=== PATIENT | male | born 1995 | race Caucasian/White ===

== ENCOUNTER 2018-05-12 18:30 | Emergency (ER) | payer SELFPAY ==
[2018-05-12] MEDS ORDERED: IBUPROFEN 400 MG TAB ONE (19:17)
[2018-05-12] MEDS ORDERED: IBUPROFEN 200 MG TAB PO ONE (19:17)
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
== END 2018-05-12 20:36 | disposition home or self-care (01) ==
LOC: ER 18:30
DX: S80.212A Abrasion, left knee, initial encounter (principal); S80.211A Abrasion, right knee, initial encounter; V29.9XXA Motorcycle rider (driver) (passenger) injured in unspecified traffic accident, initial encounter; Z88.8 Allergy status to other drugs, medicaments and biological substances
CPT/HCPCS: 70450; 72125; 99285

== ENCOUNTER 2024-05-31 15:31 | Emergency (ER) | payer OTHER ==
--- OUTSIDE RECORDS SUMMARY | 2024-05-31 15:35 | XMS REPORT | Continuity of Care Document ---
Author Name Unknown Address [address] [facility] [place] [address] [facility] thconnect Address [address] [facility] [address] [place] [address] Care Team Providers Care Orchard Pruner Name Role Phone Amy Chowdhury [facility] Primary Care Physician Chandrika Bishop FASHION SUPERVISOR-LINING BRUSHER Attending Clinician U Domenico Fang Attending Clinician Unavailable EDDOC, GENERIC FOR EDM Attending Clinician Unava Todd Carson Attending Clinician Unavailab le Nickell_K Attending Clinician Unavailable MARIO SOLORIO Attending Clinician Unavailable Chandrika Bishop FASHION SUPERVISOR-LINING BRUSHER Admitting Clinician U araseli Physician, No Primary or Family Admitting Clinic dina Unavailable UNDEFINED Admitting Clinician Unavailable Nickell_K Admitting Clinician Unavailable Payers Payer Name Policy Type Policy Number Effective Date Expirati on Date Source RADHA-[place] (EPO) [id number] Problems Condition Name Condition Details Condition Category Status Onset Date Resolution Date Last Treatment Date Treating Clinician Comments Source 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 2023-06 1-19 00:00: 00 [facility] Infection of skin Infection of Skin Problem Active 625 00:00: 00 [facility] Hematoma of scrotum Hematoma of Scrotum Problem Active 6-04 00:00: 00 [facility] Testicular mass Testicular Mass Problem Active 4-16 00:00: 00 [facility] Laceration of liver [facility]eration [facility] Liver [facility] Laceration of spleen Laceration of Spleen Problem Active [facility] Laceration of chin Laceration of Chin Problem Active [facility] Bite of insect Bite of Insect Problem Active [facility] Problem Condition [facility] Allergies, Adverse Reactions, Alerts Allergy Name Allergy Type Status Severity Reaction(s) Onset Date Inactive Date Treating Clinician Comments Source No Known Allergie s DA Active U 11-07 00:00: 00 [facility] cefaclor DA Active MO RASH 10-09 00:00: 00 [facility] Cefaclor Allergy to substanc e Active 10-09 00:00: 00 [facility] Ceclor Propensi ty to adverse reaction to drug Active 2017-06 00:00: 00 Lalo Loredo D[facility] Codeine Allergy to substanc e Active 2017-06 00:00: 00 [facility] Cefaclor Allergy to substanc e Active Unknown 2-14 00:00: 00 [facility] cefaclor DA Active [facility] CECLOR Allergy to substanc e Active [facility] Social History Social Habit Start Date Stop Date Quantity Comments Source Sex Assigned At 1995 00:00:00 1995 00:00:00 Male [facility] Smoking Status Start Date Stop Date Source Never Smoker [facility] Ex-smoker (finding) 2020-05-12 22:20:00 2020-05-12 22: 20:00 [facility] Medications Ordered Medication Name Filled Medication Name Start Date Stop Date Current Medication? Ordering Clinician Indication Dosage Frequency Signature (SIG) Comments Components Source TAKE 1 TABLET DAILY UNTIL FINISHED. 07-22 00:00: 00 10-11 00:00 :00 No 500 Lalo Mijares Pantoprazol e (Protonix) 20 Mg TABEC 2019-06 01:02: 00 No 20mg Daily [facility] pantoprazol e 20 mg tablet,hieu yed release 20 mg by oral route. pantoprazol e 20 mg tablet,hieu yed release 20 mg by oral route. 2019-06 00:00: 00 No 20mg pantoprazo le 20 mg tablet,del ayed release 20 mg by oral route. [facility] Prednisone (Deltasone) 20 Mg TAB 11-26 02:25: 00 No 60mg Daily [facility] Trimethopri m/Sulfameth oxazole (Bactrim Ds, Septra Ds, Sulfatrim Ds) 1 Each TAB 11-26 02:25: 00 No 1 Every 12 Hours [facility] Prednisone (Deltasone) 20 Mg TAB 11-26 02:25: 00 No 60mg Daily [facility] Trimethopri m/Sulfameth oxazole (Bactrim Ds, Septra Ds, Sulfatrim Ds) 1 Each TAB 11-26 02:25: 00 12-07 00:00 :00 No 1 Every 12 Hours [facility] sulfamethox azole 800 mg-trimetho prim 160 mg tablet Take 1 tablet every 12 hours by oral route for 7 days. sulfamethox azole 800 mg-trimetho prim 160 mg tablet Take 1 tablet every 12 hours by oral route for 7 days. 11-26 00:00: 00 No 1 Q12H sulfametho xazole 800 mg-trimeth oprim 160 mg tablet Take 1 tablet every 12 hours by oral route for 7 days. [facility] prednisone 20 mg tablet 60 mg by oral route. prednisone 20 mg tablet 60 mg by oral route. 11-26 00:00: 00 No 60mg prednisone 20 mg tablet 60 mg by oral route. [facility] Tramadol Hcl (Ultram) 50 Mg TAB 08-08 16:40: 00 No 50mg Every 4 Hours as needed for Pain [facility] Tramadol Hcl (Ultram) 50 Mg TAB 08-08 16:40: 00 No 50mg Every 4 Hours as needed for Pain [facility] tramadol 50 mg tablet 50 mg by oral route. tramadol 50 mg tablet 50 mg by oral route. 08-08 00:00: 00 No 50mg tramadol 50 mg tablet 50 mg by oral route. [facility] bacitracin 500 unit/gram topical ointment Apply 1 application twice a day by topical route for 14 days. bacitracin 500 unit/gram topical ointment Apply 1 application twice a day by topical route for 14 days. No 1applic ation(s ) BID bacitracin 500 unit/gram topical ointment Apply 1 applicatio n twice a day by topical route for 14 days. [facility] Vital Signs Vital Name Observation Time Observation Value Comments S ource Body Weight 2024-05-11 00:00:00 277 [lb_av] [facility] Systolic 2024-05-11 00:00:00 154 [facility]Hg[facility] Diastolic 2024-05-11 00:00:00 80 mm[Hg] [facility] BMI (Body Mass Index) 2024-05-11 00:00:00 40.9 kg/m2 [facility] Height 2024-05-11 00:00:00 69 [in_i] [facility] BP Systolic 2024-02-24 00:00:00 157 mm[Hg] [facility] BP Diastolic 2024-02-24 00:00:00 95 mm[Hg] [facility] Weight 2024-02-24 00:00:00 264 [lb_av] [facility] BMI (Body Mass Index) 2024-02-24 00:00:00 39 kg/m2 [facility] Height 2024-02-24 00:00:00 69 [in_i] [facility] Height 2023-12-16 00:00:00 69 [in_i] [facility] BP Systolic 2023-12-16 00:00:00 136 mm[Hg] [facility] Body Weight 2023-12-16 00:00:00 264 [lb_av] [facility] BP Diastolic 2023-12-16 00:00:00 86 mm[Hg] [facility] BMI (Body Mass Index) 2023-12-16 00:00:00 39 kg/m2 [facility] BMI (Body Mass Index) 2023-11-25 00:00:00 39 kg/m2 [facility] Height 2023-11-25 00:00:00 69 [in_i] [facility] Body Weight 2023-11-25 00:00:00 264 [lb_av] [facility] BP Diastolic 2023-11-25 00:00:00 86 mm[Hg] [facility] BP Systolic 2023-11-25 00:00:00 136 mm[Hg] [facility] Height 2023-11-11 00:00:00 69 [in_i] [facility] Body Weight 2023-11-11 00:00:00 264 [lb_av] [facility] BMI (Body Mass Index) 2023-11-11 00:00:00 39 kg/m2 [facility] BP Systolic 2023-11-11 00:00:00 149 mm[Hg] [facility] BP Diastolic 2023-11-11 00:00:00 85 mm[Hg] [facility] Body Weight 2023-10-21 00:00:00 264 [lb_av] [facility] BP Diastolic 2023-10-21 00:00:00 91 mm[Hg] [facility] Height 2023-10-21 00:00:00 69 [in_i] [facility] BMI (Body Mass Index) 2023-10-21 00:00:00 39 kg/m2 [facility] BP Systolic 2023-10-21 00:00:00 139 mm[Hg] [facility] BMI (Body Mass Index) 2023-10-07 00:00:00 39 kg/m2 [facility] BP Systolic 2023-10-07 00:00:00 139 mm[Hg] [facility] Height 2023-10-07 00:00:00 69 [in_i] [facility] BP Diastolic 2023-10-07 00:00:00 91 mm[Hg] [facility] Body Weight 2023-10-07 00:00:00 264 [lb_av] [facility] BP Systolic 2023-09-30 14:25:00 137 mm[Hg] Step hen F [facility] BP Diastolic 2023-09-30 14:25:00 83 mm[Hg] Joaquin phen F [facility] Weight Measured 2023-09-30 14:25:00 263.60 pounds Lalo F D[facility] Height Measured 2023-09-30 14:25:00 67.48 inches Lalo F [facility] Body Temperature 2023-09-30 14:25:00 98.30 degrees Lalo F Dyllan Heart Rate 2023-09-30 14:25:00 95.00 /min Jillian en F D[facility] Respiratory Rate 2023-09-30 14:25:00 Lalo F Dyllan BP Systolic 2023-09-03 09:33:00 140 mm[Hg] Step hen F [facility] BP Diastolic 2023-09-03 09:33:00 81 mm[Hg] Joaquin phen F [facility] Weight Measured 2023-09-03 09:33:00 268.40 pounds Lalo F Dyllan Height Measured 2023-09-03 09:33:00 67.48 inches Lalo F Dyllan Body Temperature 2023-09-03 09:33:00 98.20 degrees Lalo F Dyllan Heart Rate 2023-09-03 09:33:00 78.00 /min Jillian en F [facility]yll[facility] Respiratory Rate 2023-09-03 09:33:00 Lalo F Dyllan BP Systolic 2023-08-28 16:26:00 148 mm[Hg] Step hen F Dyll[facility] BP Diastolic 2023-08-28 16:26:00 83 mm[Hg] Joaquin phen F [facility] Weight Measured 2023-08-28 16:26:00 275.60 pounds Lalo F Dyllan Height Measured 2023-08-28 16:26:00 67.48 inches Lalo F Dyllan Body Temperature 2023-08-28 16:26:00 98.30 degrees Lalo F Dyllan Heart Rate 2023-08-28 16:26:00 89.00 /min Jillian en F Dyllan Respiratory Rate 2023-08-28 16:26:00 18.00 /min Lalo F Dyllan BP Systolic 2023-08-12 14:11:00 138 mm[Hg] Step hen F Dyllan BP Diastolic 2023-08-12 14:11:00 59 mm[Hg] Joaquin phen F Dyllan Weight Measured 2023-08-12 14:11:00 266.60 pounds Lalo F Dyllan Height Measured 2023-08-12 14:11:00 67.48 inches Lalo F Dyllan Body Temperature 2023-08-12 14:11:00 98.00 degrees Lalo F Dyllan Heart Rate 2023-08-12 14:11:00 86.00 /min Jillian en F Dyllan Respiratory Rate 2023-08-12 14:11:00 18.00 /min Lalo F Dyllan BP Systolic 2023-07-22 15:24:00 134 mm[Hg] Step hen F Dyllan BP Diastolic 2023-07-22 15:24:00 84 mm[Hg] Joaquin phen F Dyll[facility] Weight Measured 2023-07-22 15:24:00 271.60 pounds Lalo F Dyllan Height Measured 2023-07-22 15:24:00 67.48 inches Lalo F Dyllan Body Temperature 2023-07-22 15:24:00 98.30 degrees Lalo F Dyllan Heart Rate 2023-07-22 15:24:00 86.00 /min Jillian en F Dyllan Respiratory Rate 2023-07-22 15:24:00 18.00 /min Lalo F Dyllan BP Diastolic 2020-05-13 01:31:00 72 mm[Hg] [facility] BP Systolic 2020-05-13 01:31:00 128 mm[Hg] [facility] Heart Rate 2020-05-13 01:31:00 75 /min [facility] Respiratory rate 2020-05-13 01:31:00 21 /min [facility] Body Temperature 2020-05-13 01:31:00 97.5 [degF] [facility] BP Diastolic 2020-05-13 01:30:00 72 mm[Hg] [facility] BP Systolic 2020-05-13 01:30:00 128 mm[Hg] [facility] Heart Rate 2020-05-13 01:30:00 75 /min [facility] Respiratory rate 2020-05-13 01:30:00 21 /min [facility] Heart Rate 2020-05-13 01:12:00 87 /min [facility] BP Diastolic 2020-05-12 22:20:00 72 mm[Hg] [facility] BP Systolic 2020-05-12 22:20:00 137 mm[Hg] [facility] Heart Rate 2020-05-12 22:20:00 82 /min [facility] Respiratory rate 2020-05-12 22:20:00 19 /min [facility] Body Temperature 2020-05-12 22:20:00 97.5 [degF] [facility] Heart Rate 2020-05-12 22:18:00 87 /min [facility] Respiratory rate 2020-05-12 22:14:00 19 /min [facility] Body Temperature 2020-05-12 22:14:00 97.5 [degF] [facility] BP Diastolic 2020-05-12 22:14:00 72 mm[Hg] [facility] BP Systolic 2020-05-12 22:14:00 137 mm[Hg] [facility] Heart Rate 2020-05-12 22:14:00 82 /min [facility] Heart Rate 2019-11-27 02:37:00 76 /min [facility] Respiratory rate 2019-11-27 02:37:00 20 /min [facility] BP Systolic 2019-11-27 02:37:00 118 mm[Hg] [facility] BP Diastolic 2019-11-27 02:37:00 72 mm[Hg] [facility] Heart Rate 2019-11-26 23:58:00 72 /min [facility] Respiratory rate 2019-11-26 23:58:00 20 /min [facility] BP Systolic 2019-11-26 23:58:00 115 mm[Hg] [facility] BP Diastolic 2019-11-26 23:58:00 69 mm[Hg] [facility] Weight 2019-11-26 23:53:00 160 [lb_av] [facility] BMI (Body Mass Index) 2019-11-26 23:53:00 23.0 [facility]/m2 [facility]stolic 2018-05-22 14:28:00 120 mm[Hg] Step hen F Dyllan BP Diastolic 2018-05-22 14:28:00 77 mm[Hg] Joaquin Mijares Weight Measured 2018-05-22 14:28:00 242.60 pounds Lalo Mijares Height Measured 2018-05-22 14:28:00 67.48 inches Lalo Mijares Body Temperature 2018-05-22 14:28:00 98.40 degrees Lalo Mijares Heart Rate 2018-05-22 14:28:00 106.00 /min Luther Mijares Respiratory Rate 2018-05-22 14:28:00 16.00 /min Lalo Mijares Procedures Procedure Date / Time Performed Performing Clinicia n Source Orchiectomy, Radical (Surg) 2023-10-15 00:00:00 [facility] PET-CT, whole body scan 2023-10-07 00:00:00 [facility] [id number] Ultrasound, Scrotum And Contents 2023-08-07 00:00:00 Lalo Mijares Orchiectomy Partial 2023-06-23 00:00:00 juan [facility] ECG (electrocardiogram) 2020-05-12 00:00:00 [facility] X-ray of chest, two views 2020-05-12 00:00:00 [facility]- [facility] [place] [facility] Encounters Start Date/Time End Date/Time Encounter Type Admission Type Attending Clinicians Care Facility Care Department Encounter ID Source 2023-10-19 11:00:00 Inpatient [facility] [id number] [facility] 2023-10-16 11:00:00 Inpatient [facility] [id number] [facility] 2024-05-11 00:00:00 2024-05-11 00:00:00 Todd Vieira MD: [address], [place] [address] , Ph. [facility] [place] - 5050 [id number] [facility] 2024-03-26 08:46:00 2024-03-26 08:46:00 Outpatient Chandrika Walton [facility] N[facility]CM [id number] [facility] 2024-02-24 00:00:00 2024-02-24 00:00:00 Chandrika Bishop, ENGINEER SYSTEMS: [address], [place] [address] , Ph. [facility] [place] - 5050 [id number] [facility] 2023-12-16 00:00:00 2023-12-16 00:00:00 Chandrika Bishop, ENGINEER SYSTEMS: [address], [place] [address] , Ph. [facility] - 5150 [id number] [facility] 2023-11-25 00:00:00 2023-11-25 00:00:00 Chandrika Bishop, ENGINEER SYSTEMS: [address], [place] [address] , Ph. [facility] - 5150 [id number] [facility] 2023-11-11 00:00:00 2023-11-11 00:00:00 Chandrika Bishop, ENGINEER SYSTEMS: [address], [place] [address] , [facility]. [facility] 5150 [id number] [facility] 2023-11-08 12:57:00 2023-11-08 16:17:00 Emergency EM [facility]odDomenico [facility]e [facility] [id number] [facility] 2023-11-08 12:17:00 2023-11-08 12:20:00 Emergency EM EDDODieter, KEELEY HCACL AERS [id number] [facility] 2023-10-31 09:01:00 2023-10-31 09:01:00 Outpatient Chandrika Walton [facility] [id number] [facility] 2023-10-31 09:01:00 2023-10-31 09:01:00 Outpatient Chandrika Walton [facility] [id number] [facility] 2023-10-21 00:00:00 2023-10-21 00:00:00 Todd Vieira MD: [address] [place] [address] , Ph. [facility] 5150 [id number] [facility] 2023-10-15 05:16:00 2023-10-15 05:16:[address] [facility] DAYS [id number] [facility] 2023-10-15 05:16:00 2023-10-15 05:16:[address] [facility] DAYS [id number] [facility] 2023-10-07 00:00:00 2023-10-07 00:00:00 Chandrika Bishop NP: [address] [place] [address] , Ph. [facility] 5150 [id number] [facility] 2023-09-30 14:20:56 2023-09-30 14:20:56 Outpatient [facility] [id number] Lalo Loredo [facility] 2023-09-30 00:00:00 2023-09-30 00:00:00 Outpatient Visit [facility] [id number] Lalo Loredo Dyllan 2023-09-09 00:00:00 2023-09-09 00:00:00 Outpatient Nickell_K [facility] [id number] [facility] 2023-09-08 00:00:00 2023-09-08 00:00:00 Outpatient Nickell_K [facility] [id number] [facility] 2023-08-30 09:12:23 2023-08-30 09:12:23 Outpatient [facility] [id number] Lalo Mijares 2023-08-29 08:34:31 2023-08-29 08:34:31 Outpatient [facility] [place] [id number] Lalo Mijares 2023-08-28 16:22:25 2023-08-28 16:22:25 Outpatient [facility] [id number] Lalo Mijares 2023-08-12 14:06:05 2023-08-12 14:06:05 Outpatient [place] [id number] Lalo Loredo Dyllan 2023-08-12 00:00:00 2023-08-12 00:00:00 Outpatient Visit [facility] [id number] Lalo Loredo [place] 2023-08-07 13:37:06 2023-08-07 13:37:06 Outpatient [facility] [id number] Lalo Loredo [place] 2023-07-25 15:56:37 2023-07-25 15:56:37 Outpatient [facility] [id number] Lalo Loredo [place] 2023-07-22 15:14:49 2023-07-22 15:14:49 Outpatient [facility] [id number] Lalo Loredo [place] 2020-05-12 22:11:00 2020-05-13 01:31:00 Departed Emergency Room MALU TORIBIO [id number] [facility] 2019-11-26 23:31:00 2019-11-26 23:31:00 Registered Emergency Room MARIO SOLORIO [id number] [facility] Results Test Description Test Time Test Comments Results Result Co mments Source PROTHROMBIN [id number] 13:51:00* Test Item Value Reference Range Interpretation Comme nts PROTHROMBIN TIME PATIENT (test code = PTP) 11.9 SECONDS 9.3-12.9 N INTERNATIONAL NORMAL RATIO (test code = INR) 1.1 0.8-1.2 N TARGET INR BY INDICATION Indication INR1. Prophylaxis of venous thrombosis 2.0 - 3.0 (orthopedic surgery), Prophylaxis of venous thrombosis (other than high-risk surgery), Treatment of Deep Vein Thrombosis/Pulmonary Embolism, Prevention of systemic embolism - Tissue heart valves, Acute Myocardial Infarction (to prevent systemic embolism), Valvular heart disease, Atrial Fibrillation, Bileaflet mechanical valve in aortic position.2. Mechanical prosthetic valves (high risk), 2.5 - 3.5 Presence of Lupus Anticoagulant or Antiphospholipid Antibodies, Prevention of systemic embolism - Acute Myocardial Infarction (to prevent recurrent infarct). THROMBOPLASTIN TIME [id number] 13:51:00* Test Item Value Reference Range Interpretation Comme nts THROMBOPLASTIN TIME PARTIAL (test code = PTT) 35.0 Seconds 25.0-39.5 N Therapeutic Rang e: 50.4 - 88.3 Seconds Effective 10/06/2018 CBC W/AUTO [id number] 13:42:00* Test Item Value Reference Range Interpretation Comme nts WHITE BLOOD CELL (test code = WBC) 8.7 x10 3/uL 4.5-11.0 N RED BLOOD CELL (test code = RBC) 4.93 x10 6/uL 4.00-5.60 N HEMOGLOBIN (test code = HGB) 14.2 g/dL 12.5-16.9 N HEMATOCRIT (test code = HCT) 42.7 % 37.5-50.7 N MEAN CELL VOLUME (test code = MCV) 86.6 fL 81.0-99.0 N MEAN CELL HGB (test code = MCH) 28.8 pg 27.0-33.0 N MEAN CELL HGB CONCETRATION (test code = MCHC) 33.3 g/dL 33.0-37.0 N RED CELL DISTRIBUTION WIDTH CV (test code = RDW) 13.8 % 11.5-14.5 N RED CELL DISTRIBUTION WIDTH SD (test code = RDW-SD) 43.8 fL 37.0-54.0 N PLATELET COUNT (test code = PLT) 319 x10 3/uL 150-400 N MEAN PLATELET VOLUME (test c ode = MPV) 9.8 fL 7.0-9.0 H NEUTROPHIL % (test code = NT%) 68.4 % 56.0-77.0 N IMMATURE GRANULOCYTE % (test code = IG%) 0.5 % 0.0-2.0 N LYMPHOCYTE % (test code = LY%) 20.5 % 14.0-32.0 N MONOCYTE % (test code = MO%) 6.9 % 4.8-9.0 N EOSINOPHIL % (test code = EO%) 2.8 % 0.3-3.7 N BASOPHIL % (test code = BA%) 0.9 % 0.0-2.0 N NUCLEATED RBC % (test code = NRBC%) 0.0 % 0-0 N NEUTROPHIL # (test code = NT#) 5.95 x10 3/uL 2.0-7.6 N IMMATURE GRANULOCYTE # (test code = IG#) 0.04 x10 3/uL 0.00-0.03 H LYMPHOCYTE # (test code = LY#) 1.78 x10 3/uL 1.0-3.8 N MONOCYTE # (test code = MO#) 0.60 x10 3/uL 0.1-0.8 N EOSINOPHIL # (test code = EO#) 0.24 x10 3/uL 0.0-0.2 H BASOPHIL # (test code = BA#) 0.08 x10 3/uL 0.0-0.2 N NUCLEATED RBC # (test code = NRBC#) 0.00 x10 3/uL 0.0-0.1 N - PET/CT TUMOR SK [id number] 07:00:00 [facility] 1995 Sex: M FAX: Chandrika Bishop [phone] [place]: [address]: DEP Name: ANTONIETA VALENZUELA [facility] : 1995 Age/S: 27/M [address] Unit #: [id number] Loc: [place] [address] Phys: Chandrika Bishop FASHION SUPERVISOR-LINING BRUSHER Acct: [id number] Dis Date: Status: DEP CLI PHONE #: [phone] Exam Date: 10/31/2023 1241 FAX #: [phone] Reason: N50.89 EXAMS: CPT CODE: [id number] PET/CT TUMOR SK BS MIDTH [id number] HISTORY: N50.89. COMPARISON: None available. [facility] PET/CT SCAN: 9.8 mCi of FDG administered. Images obtained from the skull base to the feet 1 hour postinjection. Blood glucose level =95 mg/dL. HEAD AND NECK: Intense uptake within the brain parenchyma limits evaluation. Physiologic pharyngeal uptake. CHEST: No pathologic hilar, mediastinal or axillary adenopathy or uptake. No lungparenchymal uptake. 2.7 mm nodule within the lateral right middle lobe. This is too small to characterize and no abnormal uptake noted. No chest wall uptake. ABDOMEN: No hepatic or adrenal metastaticdisease. No abnormal uptake within the pancreas, spleen and kidneys. Gallstone noted. 2 cm retroperi toneal eft para-aortic lymph node. This is at the level of the renal hilum. SUV ranging up to 1. Smaller shotty left retroperitoneal lymph nodes without abnormal uptake with SUV ranging between 1-1.5. No other pathologic mesenteric or retrocrural or retroperitoneal adenopathy or uptake. No abnormaluptake within the bowel. PELVIS: Excretion into the urinary bladder limited evaluation. No abnormalexcretion into the bowel. No abnormal uptake within the prostate. Patient is post left orchiectomy.No abnormal uptake within the right testicle. No pelvic pathologic adenopathy. MUSCULOSKELETAL: No abnormal uptake or metastatic disease. LEGS: No abnormal uptake. IMPRESSION: 2 cm left retroperitoneal lymph node at the level of the renal hilum without abnormal uptake with SUV ranging up to 1. Shotty adenopathy as well in the left retroperitoneum without abnormal uptake with SUV ranging up to 1.5. No other areas of abnormal uptake or metastatic disease. PAGE 1 Signed Report (CONTINUED) FAX: Chandrika Bishop [phone] [place]: [address]: DEP Name: ANTONIETA VALENZUELA [facility] : 1995 Age/S: 27/M [address] [facility] Unit #: [id number] Loc: [place] [address] Phys: Chandrika Bishop Acct: [id number] Dis Date: Status: MARU CLI PHONE #: [phone] Exam Date: 10/31/2023 1241 FAX #: [phone] Reason: N50.89 EXAMS: CPT CODE: [id number] PET/CT TUMOR [facility] MIDTH [id number] (Continued) at 0700 Reported and signed by: Phillip Jordan M.D. CC: Chandrika Bishop Technologist: MIGDALIA Lee Trnscrd Date/Time/By: 11/03/2023 (07) : By: [email or web address] Orig Print D/T: S: 11/03/2023 (0704) PAGE 2 Signed Report- PET[facility]CT [id number] 07:00:00 [facility] ([facility])Name: ANTONIETA VALENZUELA : 1995 Sex: M FAX: Chandrika Bishop Mio [phone] [place]: St: DEP Name: ANTONIETA VALENZUELA JR [facility] : 1995 Age/S: 27/M [address] [facility] Unit #: [id number] Loc: [place] [address] Phys: Chandrika Bishop FASHION SUPERVISOR-LINING BRUSHER Acct: [id number] Dis Date: Status: DEP CLI PHONE #: [phone] Exam Date: 1241 FAX #: [phone] Reason: N50.89 EXAMS: CPT CODE: [id number] PET/CT TUMOR SK MIDTH 96472 HISTORY: N50.89. COMPARISON: None available. [facility] PET/CT SCAN: 9.8 mCi of FDG administered. Images obtained from the skull base to the feet 1 hour postinjection. Blood glucose level = 95 mg/dL. HEAD AND NECK: Intense uptake within the brain parenchyma limits evaluation. Physiologic pharyngeal uptake. CHEST: No pathologic hilar, mediastinal or axillary adenopathy or uptake. No lung parenchymal uptake. 2.7 mm nodule within the lateral right middle lobe. This is too small to characterize and no abnormal uptake noted. No chest wall uptake. ABDOMEN: No hepatic or adrenal metastatic disease. No abnormal uptake within the pancreas, spleen and kidneys. Gallstone noted. 2 cm retroperitoneal eft para-aortic lymph node. This is at the level of the renal hilum. SUV ranging up to 1. Smaller shotty left retroperitoneal lymph nodes without abnormal uptake with SUV ranging between 1- 1.5. No other pathologic mesenteric or retrocrural or retroperitoneal adenopathy or uptake. No abnormal uptake within the bowel. PELVIS: Excretion into the urinary bladder limited evaluation. No abnormal excretion into the bowel. No abnormal uptake within the prostate. Patient is post left orchiectomy. No abnormal uptake within the right testicle. No pelvic pathologic adenopathy. MUSCULOSKELETAL:No abnormal uptake or metastatic disease. LEGS: No abnormal uptake. IMPRESSION: 2 cm left retroperitoneal lymph node at the level of the renal hilum without abnormal uptake with SUV ranging up to 1. Shotty adenopathy as well in the left retroperitoneum without abnormal uptake with SUV ranging up to1.5. No other areas of abnormal uptake or metastatic disease. PAGE 1 Signed Report (CONTINUED) FAX:Chandrika Bishop [phone] [place]: St: DEP Name: ANTONIETA VALENZUELA JR [facility] : 1995 Age/S: 27/M [address] [facility] Unit #: [id number] Loc: [place] [address] Phys: Chandrika Bishop APRN-CNPAcct: [id number] Dis Date: Status: DEP CLI PHONE #: [phone] Exam Date: 10/31/2023 1241 FAX #: [phone] Reason: N50.89 EXAMS: CPT CODE: [id number] PET/CT TUMOR SK MIDTH 61651 (Continued) at 0700 Reported and signed by: Phillip Jordan M.D. CC: Chandrika Bishop APRN-LINING BRUSHER Technologist: MIGDALIA Lee Trnscrd Date/Time/By: 11/03/2023 (07) : By: [email or web address] Orig Print D/T: S: 11/03/2023 (0704) PAGE 2 Signed ReportSURGICAL 2023-10-24 11:28:00* Test Item Value Reference Range Interpretation Comme nts SURGICAL (test code = SR) R UN DATE: 10/24/23 [facility] PAGE 1 RUN TIME: 1128 Specimen Inquiry RUN USER: INTERFACE P ATIENT: ANTONIETA VALENZUELA JR LOC: [facility] U #: [id number] AGE/SX: 27/M ROOM: RE10/15/23REG DR: Todd Vieira MD : [birth year] BED: DIS: STATUS: [facility] TLOC: SPEC #: [id number] RECD: 10/15/23 STATUS: CHEL AMAYA #: [id number] ANATOLY: 10/15/23- SUBM DR: Todd Vieira MD ENTERED: 10/15/23 SP TYPE: SURGICAL OTHR DR: Undefined Provider ORDERED: 52108, 00685/7, 56440, ANATOMIC SPEC COPIES TO: Undefined Provider Todd Vieira MD [address] [place] [address] PROCEDURES: 33041 (10/24/23-1055) 15508 (10/24/23) 40774 (10/24/23) TISSUES: TESTICLE, LEFT - AND CORD CLINICAL COMMUNICATIONS Dr. Schmitz discussed the case with Dr. Vieira on 10/24/23 at 1126. CAP CANCER SUMMARY CASE SUMMARY: (TESTIS: Radical Orchiectomy)Standard(s): AJCC-UICC 8 Version: 4.2.0.0Protocol Posting Date: February 2023 Pre-Orchiectomy Serum Tumor Marker(s) (Note A) (select all that apply)___ Lactate dehydrogenase (LDH) elevation Post-Orchiectomy Serum Tumor Marker(s) (Note A) (select all that apply)___ Unknown: SPECIMENSpecimen Laterality___ Left TUMORTumor Focality___ Multifocal Tumor Size___ Greatest dimension of main tumor mass in Centimeters (cm): 1.2 cm CONTINUED ON NEXT PAGE R UN DATE: 10/24/23 [facility] PAGE 2 RUN TIME: 1128 Specimen Inquiry RUN USER: INTERFACE S PEC #: [id number] PATIENT: ANTONIETA VALENZUELA JR #[id number] (Continued) CAP CANCER SUMMARY (Continued) Histologic TypeNon-seminomatous germ cell tumors___ Embryonal carcinoma Tumor Extent (Note E) (select all that apply)___ Limited to testis Lymphatic and / or Vascular Invasion (Note F)___ Not identified MARGINSMargin Status___ All margins negative for tumor REGIONAL LYMPH NODESRegional Lymph Node Status___ Not applicable (no regional lymph nodes submitted or found) DISTANT METASTASISDistant Site(s) Involved, if applicable (select all that apply)___ Not applicable pTNM CLASSIFICATION (AJCC 8th Edition)---p T1, pN Category ___ pN not assigned (no nodes submitted or found) pM Category (required only if confirmed pathologically) ___ Not applicable ADDITIONAL FINDINGS (Note H)+Additional Findings (select all that apply)___ None identified FINAL DIAGNOSIS LEFT TESTICLE, RADICAL ORCHIECTOMY: - Embryonal carcinoma, see comment and CAP cancer summary. - Benign surgical resection margins. 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 IHC with appropriate controls performedon Block A9. The malignant cells are positive for OCT3/4, CD30 and PLAP; but negative forD2-40, CD117, AFP, GLYP3 and B-HCG. Results support the above diagnosis. No Yolk sackcomponent identified. No angiolymphatic invasion noted. A large Hydrocele also identified. A second staff pathologist has reviewed the case and concurs with the diagnosticinterpretation. CONTINUED ON NEXT PAGE R UN DATE: 10/24/23 [place] [facility] PAGE 3 RUN TIME: 1128 Specimen Inquiry RUN USER: INTERFACE S [facility] #: [id number] PATIENT: ANTONIETA VALENZUELA JR #[id number] (Continued) GROSS DESCRIPTION Specimen A is received in formalin, labeled with the patient's name, medical recordnumber,"left testicle" and consists of a purple-pink testis (10.0 x 5.0 x 5.0 cm, 166g).The spermatic cord measures 8.0 cm in length by 1.8 cm in diameter. The specimen is sectioned to reveal a unilocular cyst cavity filled with clear yellow serous fluid. Theinner lining of the cyst is hua-pink smooth and has a thickness measuring 0.1-0.5. Thetestis is sectioned to reveal hua-pink cut surfaces with focal areas of hua-yellow totan-brown discolaration at the periphery. Pantograph Setter sections to include the entiretestis are submitted in A1-A18. A lymph node disection performed. No lymph node identified. Section code:A1: Spermatic cord resection margin, en faceA2-A3: Cyst, representativeA4-A18 Testis, nutrition representative Technical component excluding immunohistochemistry is performed at [facility], [address] [place] [address] Technical component of all immunohistochemistry is performed at [facility], [address] [place] [address], [address], [place] [address] Immunohistochemistry: This test was developed and its performance characteristicsdetermined by this laboratory. It has not been approved nor does it need approval by the USFDA. Appropriate positive and negative controls are reviewed and judged to be acceptable.This laboratory is certified under the Clinical Laboratory Improvement Amendments (CLIA-88)as qualified to perform high complexity clinical laboratory testing. Unless gross only, the diagnosis is based upon microscopic examination. CLINICAL INFORMATION COLLECTION DATE: 4PRE-OP DIAGNOSIS: DISORDERS OF MALE GENITAL ORGANS ----- Signed SIGNATURE ON FILE Syeda Schmitz 10/24/23 1128 END OF REPORT BASIC METABOLIC [id number] 12:57:00* Test Item Value Reference Range Interpretation Comme nts SODIUM (test code = NA) 139 mmol/L 136-145 N POTASSIUM (test code = K) 3.9 mmol/L 3.5-5.1 N CHLORIDE (test code = CL) 104.0 mmol/L 98-107 N CARBON DIOXIDE (test code = CO2) 27.0 mmol/L 21-32 N ANION GAP (test code = GAP) 11.9 mmol/L 10-20 N GLUCOSE (test code = GLU) 113 mg/dL 74-106 H BLOOD UREA NITROGEN (test code = BUN) 16 mg/dL 7-18 N GLOMERULAR FILTRATION RATE (test code = GFR) > 60 mL/min >=60 The Glomerular Filtration Rate is a calculated parameterbased on serum Creatinine, patient age and sex. GFR valuesless than 60 mL/min/1.73 square meters are indicative ofChronic Kidney Disease. Values less than 15 mL/min/1.73square meters indicate Kidney failure. The calculation forGFR is based on the CKD-EPI (2020) calculation. This formulais race indifferent and is the recommended formula for GFRby the National Kidney Foundation for Adults.The GFR will not calculate if the sex is unknown or if thepatient's age is <18 years. CREATININE (test code = CREAT) 0.80 mg/dL 0.7-1.3 N BUN/CREATININE RATIO (test code = BUN/CREA) 18.8 10-20 N CALCIUM (test code = CA) 9.6 mg/dL 8.5-10.1 N CBC W/AUTO [id number] 12:40:00* Test Item Value Reference Range Interpretation Comme nts WHITE BLOOD CELL (test code = WBC) 7.1 K/mm3 4.5-12.5 N RED BLOOD CELL (test code = RBC) 5.22 mill/mm3 4.0-5.8 N HEMOGLOBIN (test code = HGB) 15.0 gram/dL 13.0-17.5 N HEMATOCRIT (test code = HCT) 44.3 % 42.0-52.0 N MEAN CELL VOLUME (test code = MCV) 84.9 fL 80-98 N MEAN CELL HGB (test code = MCH) 28.7 picogram 27.0-33.0 N MEAN CELL HGB CONCETRATION (test code = MCHC) 33.9 gram/dL 33.0-36.0 N RED CELL DISTRIBUTION WIDTH (test code = RDW) 13.2 % 11.6-16.2 N RED CELL DISTRIBUTION WIDTH SD (test code = RDW-SD) 40.6 fL 37.0-51.0 N PLATELET COUNT (test code = PLT) 301 K/mm3 150-450 N MEAN PLATELET VOLUME (test c ode = MPV) 9.8 fL 6.7-11.0 N NEUTROPHIL % (test code = NT%) 63.3 % 39.0-69.0 N IMMATURE GRANULOCYTE % (test code = IG%) 1.4 % 0.0-5.0 N LYMPHOCYTE % (test code = LY%) 24.9 % 25.0-55.0 L MONOCYTE % (test code = MO%) 5.2 % 0.0-10.0 N EOSINOPHIL % (test code = EO%) 4.2 % 0.0-5.0 N BASOPHIL % (test code = BA%) 1.0 % 0.0-1.0 N NUCLEATED RBC % (test code = NRBC%) 0.0 % 0-0 N NEUTROPHIL # (test code = NT#) 4.50 K/mm3 1.8-7.7 N IMMATURE GRANULOCYTE # (test code = IG#) 0.10 x10 3/uL 0-0.03 H LYMPHOCYTE # (test code = LY#) 1.77 K/mm3 1.0-5.0 N MONOCYTE # (test code = MO#) 0.37 K/mm3 0-0.8 N EOSINOPHIL # (test code = EO#) 0.30 K/mm3 0.0-0.5 N BASOPHIL # (test code = BA#) 0.07 K/mm3 0.0-0.2 N NUCLEATED RBC # (test code = NRBC#) 0.00 K/mm3 0.0-0.1 N COMPREHENSIVE METABOLIC PANEL [ADDED]2023-10-07 00:00:00* Test Item Value Reference Range Interpretation Comme nts GLUCOSE (test code = 2217) 128 MG/DL BUN (test code = 2208) 10 MG/DL CREATININE (test code = 2214) 0.92 MG/DL eGFR (2020 CKD-EPI) (test code = 97950) 115 ML/MIN/1.73 CALC BUN/CREAT (test code = 2235) 11 RATIO SODIUM (test code = 2231) 145 MEQ/L POTASSIUM (test code = 2228) 4.1 MEQ/L CHLORIDE (test code = 2215) 105 MEQ/L CARBON DIOXIDE (test code = 2206) 18 MEQ/L CALCIUM (test code = 2209) 9.8 MG/DL PROTEIN, TOTAL (test code = 2229) 7.2 G/DL ALBUMIN (test code = 2201) 4.9 G/DL CALC GLOBULIN (test code = 2240) 2.3 G/DL CALC A/G RATIO (test code = 2234) 2.1 RATIO BILIRUBIN, TOTAL (test code = 2207) 0.3 MG/DL ALKALINE PHOSPHATASE (test code = 2204) 83 U/L AST (test code = 2218) 21 U/L ALT (test code = 2219) 26 U/L Lalo Brown: [ADDED]2023-10-07 00:00:00* Test Item Value Reference Range Interpretation Comme nts NOTE: (test code = 998) (NOTE) Lalo MijaresCOMPREHENSIVE METABOLIC PANEL [ADDED]2023-10-07 00:00:00* Test Item Value Reference Range Interpretation Comme nts GLUCOSE (test code = 2217) 128 MG/DL BUN (test code = 2208) 10 MG/DL CREATININE (test code = 2214) 0.92 MG/DL eGFR (2020 CKD-EPI) (test code = 17675) 115 ML/MIN/1.73 CALC BUN/CREAT (test code = 2235) 11 RATIO SODIUM (test code = 2231) 145 MEQ/L POTASSIUM (test code = 2228) 4.1 MEQ/L CHLORIDE (test code = 2215) 105 MEQ/L CARBON DIOXIDE (test code = 2206) 18 MEQ/L CALCIUM (test code = 2209) 9.8 MG/DL PROTEIN, TOTAL (test code = 2229) 7.2 G/DL ALBUMIN (test code = 2201) 4.9 G/DL CALC GLOBULIN (test code = 2240) 2.3 G/DL CALC A/G RATIO (test code = 2234) 2.1 RATIO BILIRUBIN, TOTAL (test code = 2207) 0.3 MG/DL ALKALINE PHOSPHATASE (test code = 2204) 83 U/L AST (test code = 2218) 21 U/L ALT (test code = 2219) 26 U/L Lalo Loredo DyllanNOTE: [ADDED]2023-10-07 00:00:00* Test Item Value Reference Range Interpretation Comme nts NOTE: (test code = 998) (NOTE) Lalo MijaresLIPID [id number] 00:00:00* Test Item Value Reference Range Interpretation Comme nts CHOLESTEROL (test code = 2210) 155 MG/DL TRIGLYCERIDES (test code = 2232) 183 MG/DL HDL CHOLESTEROL (test code = 2220) 40 MG/DL CALC LDL CHOL (test code = 2237) 87 MG/DL RISK RATIO LDL/HDL (test cod e = 2238) 2.18 RATIO Lalo MijaresHEMOGLOBIN [id number] 00:00:00* Test Item Value Reference Range Interpretation Comme nts HEMOGLOBIN A1c (test code = 70938) 5.3 % Lalo MijaresTSH, THIRD [id number] 00:00:00* Test Item Value Reference Range Interpretation Comme nts TSH, THIRD GENERATION (test code = 2821) 0.806 UIU/ML Lalo MijaresLIPID [id number] 00:00:00* Test Item Value Reference Range Interpretation Comme nts CHOLESTEROL (test code = 2210) 155 MG/DL TRIGLYCERIDES (test code = 2232) 183 MG/DL HDL CHOLESTEROL (test code = 2220) 40 MG/DL CALC LDL CHOL (test code = 2237) 87 MG/DL RISK RATIO LDL/HDL (test cod e = 2238) 2.18 RATIO Lalo MijaresHEMOGLOBIN [id number] 00:00:00* Test Item Value Reference Range Interpretation Comme nts HEMOGLOBIN A1c (test code = 51942) 5.3 % Lalo CalderonH, THIRD [id number] 00:00:00* Test Item Value Reference Range Interpretation Comme kendell TSH, THIRD GENERATION (test code = 2821) 0.806 UIU/ML Lalo MijaresAFP, TUMOR [id number] 00:00:00* Test Item Value Reference Range Interpretation Comme nts AFP, TUMOR MARKER (test code = 06495) 6.66 NG/ML Lalo MijaresBETA-2 [id number] 00:00:00* Test Item Value Reference Range Interpretation Comme nts BETA-2 MICROGLOBULIN (test c ode = 4204) 1.7 MG/L Lalo [id number] 00:00:00* Test Item Value Reference Range Interpretation Comme nts LDH (test code = 2224) 386 U/L Lalo MijaresHCG, [id number] 00:00:00* Test Item Value Reference Range Interpretation Comme nts HCG, QUANTITATIVE (test code = 2506) 16 MIU/ML Lalo MijaresAFP, TUMOR [id number] 00:00:00* Test Item Value Reference Range Interpretation Comme nts AFP, TUMOR MARKER (test code = 73710) 6.66 NG/ML Lalo Loredo AustinBETA-2 [id number] 00:00:00* Test Item Value Reference Range Interpretation Comme nts BETA-2 MICROGLOBULIN (test c ode = 4204) 1.7 MG/L Lalo [id number] 00:00:00* Test Item Value Reference Range Interpretation Comme nts LDH (test code = 2224) 386 U/L Lalo MijaresHCG, [id number] 00:00:00* Test Item Value Reference Range Interpretation Comme kendell HCG, QUANTITATIVE (test code = 2506) 16 MIU/ML Lalo [id number] 02:16:46* Test Item Value Reference Range Interpretation Comme kendell TESTOSTERONE (test code = 2830) 581 NG/DL 300-1080 UNLESS OTHERWISE INDICATED, ALL TESTING PERFORMED AT [facility] [address] [place] [address] PLATING TANK OPERATOR APPRENTICE: PO PACHECO M.D. CLIA NUMBER [id number] [facility] [place]. [id number] COMPREHENSIVE METABOLIC [id number] 01:33:18* Test Item Value Reference Range Interpretation Comme nts GLUCOSE (test code = 2217) 78 MG/DL 70-99 BUN (test code = 220) 10 MG/DL 6-20 CREATININE (test code = 2214) 0.96 MG/DL 0.80-1.40 eGFR (2020 CKD-EPI) (test code = 35132) 110 ML/MIN/1.73 >60 CALC BUN/CREAT (test code = 2235) 10 RATIO 6-28 SODIUM (test code = 223) 140 MEQ/L 133-146 POTASSIUM (test code = 2228) 5.2 MEQ/L 3.5-5.4 CHLORIDE (test code = 2215) 101 MEQ/L 95-107 CARBON DIOXIDE (test code = 2206) 25 MEQ/L 19-31 CALCIUM (test code = 2209) 9.9 MG/DL 8.5-10.5 PROTEIN, TOTAL (test code = 2229) 7.1 G/DL 6.1-8.3 ALBUMIN (test code = 2201) 4.8 G/DL 3.5-5.2 CALC GLOBULIN (test code = 2240) 2.3 G/DL 1.9-3.7 CALC A/G RATIO (test code = 223) 2.1 RATIO 1.0-2.6 BILIRUBIN, TOTAL (test code = 2207) 0.3 MG/DL <=1.2 ALKALINE PHOSPHATASE (test code = 2204) 87 U/L 40-115 AST (test code = 2218) 28 U/L 9-50 ALT (test code = 2219) 33 U/L 5-50 COMPREHENSIVE METABOLIC [id number] 00:00:00* Test Item Value Reference Range Interpretation Comme nts GLUCOSE (test code = 2217) 78 MG/DL BUN (test code = 2208) 10 MG/DL CREATININE (test code = 2214) 0.96 MG/DL eGFR (2020 CKD-EPI) (test code = 91957) 110 ML/MIN/1.73 CALC BUN/CREAT (test code = 2235) 10 RATIO SODIUM (test code = 2231) 140 MEQ/L POTASSIUM (test code = 2228) 5.2 MEQ/L CHLORIDE (test code = 2215) 101 MEQ/L CARBON DIOXIDE (test code = 2206) 25 MEQ/L CALCIUM (test code = 2209) 9.9 MG/DL PROTEIN, TOTAL (test code = 2229) 7.1 G/DL ALBUMIN (test code = 2201) 4.8 G/DL CALC GLOBULIN (test code = 2240) 2.3 G/DL CALC A/G RATIO (test code = 2234) 2.1 RATIO BILIRUBIN, TOTAL (test code = 2207) 0.3 MG/DL ALKALINE PHOSPHATASE (test code = 2204) 87 U/L AST (test code = 2218) 28 U/L ALT (test code = 2219) 33 U/L Lalo [id number] 00:00:00* Test Item Value Reference Range Interpretation Comme nts TESTOSTERONE (test code = 2830) 581 NG/DL Lalo MijaresCOMPREHENSIVE METABOLIC [id number] 00:00:00* Test Item Value Reference Range Interpretation Comme nts GLUCOSE (test code = 2217) 78 MG/DL BUN (test code = 2208) 10 MG/DL CREATININE (test code = 2214) 0.96 MG/DL eGFR (2020 CKD-EPI) (test code = 69714) 110 ML/MIN/1.73 CALC BUN/CREAT (test code = 2235) 10 RATIO SODIUM (test code = 2231) 140 MEQ/L POTASSIUM (test code = 2228) 5.2 MEQ/L CHLORIDE (test code = 2215) 101 MEQ/L CARBON DIOXIDE (test code = 2206) 25 MEQ/L CALCIUM (test code = 2209) 9.9 MG/DL PROTEIN, TOTAL (test code = 2229) 7.1 G/DL ALBUMIN (test code = 2201) 4.8 G/DL CALC GLOBULIN (test code = 2240) 2.3 G/DL CALC A/G RATIO (test code = 2234) 2.1 RATIO BILIRUBIN, TOTAL (test code = 2207) 0.3 MG/DL ALKALINE PHOSPHATASE (test code = 2204) 87 U/L AST (test code = 2218) 28 U/L ALT (test code = 2219) 33 U/L Lalo [id number] 00:00:00* Test Item Value Reference Range Interpretation Comme nts TESTOSTERONE (test code = 2830) 581 NG/DL Lalo MijaresCBC W/AUTO DIFF WITH [id number] 03:46:46* Test Item Value Reference Range Interpretation Comme nts WBC (test code = 1001) 6.9 K/UL 3.5-11.0 RBC (test code = 1002) 5.23 M/UL 4.50-6.10 HEMOGLOBIN (test code = 1003) 14.7 G/DL 13.5-17.0 HEMATOCRIT (test code = 1004) 45.2 % 40.0-51.0 MCV (test code = 1005) 86.4 fL 80.0-99.0 MCH (test code = 1006) 28.1 PG 25.0-33.0 MCHC (test code = 1007) 32.5 G/DL 31.0-36.0 RDW (test code = 1038) 12.4 % 11.5-15.0 NEUTROPHILS (test code = 1008) 64.2 % LYMPHOCYTES (test code = 1010) 22.2 % MONOCYTES (test code = 1011) 7.4 % EOSINOPHILS (test code = 1012) 4.8 % BASOPHILS (test code = 1013) 1.0 % IMMATURE GRANULOCYTES (test code = 1036) 0.4 % NUCLEATED RBCS (test code = 1065) 0.0 /100 WBC'S See_Comment [Automated messa ge] The system which generated this result transmitted reference range: 0.0. The reference range was not used to interpret this result as normal/abnormal. PLATELET COUNT (test code = 1015) 332 K/UL 130-400 ABSOLUTE NEUTROPHILS (test code = 1066) 4.39 K/UL 1.50-7.50 ABSOLUTE LYMPHOCYTES (test code = 1067) 1.52 K/UL 1.00-4.00 ABSOLUTE MONOCYTES (test code = 1068) 0.51 K/UL 0.20-1.00 ABSOLUTE EOSINOPHILS (test code = 1040) 0.33 K/UL 0.00-0.50 ABSOLUTE BASOPHILS (test code = 1069) 0.07 K/UL 0.00-0.20 ABS IMMATURE GRANULOCYTES (test code = 1020) 0.03 K/UL 0.00-0.10 ABS NUCLEATED RBCS (test code = 36099) 0.00 K/UL 0.00-0.11 CBC W/AUTO [id number] 00:00:00* Test Item Value Reference Range Interpretation Comme nts WBC (test code = 1001) 6.9 K/UL RBC (test code = 1002) 5.23 M/UL HEMOGLOBIN (test code = 1003) 14.7 G/DL HEMATOCRIT (test code = 1004) 45.2 % MCV (test code = 1005) 86.4 fL MCH (test code = 1006) 28.1 PG MCHC (test code = 1007) 32.5 G/DL RDW (test code = 1038) 12.4 % NEUTROPHILS (test code = 1008) 64.2 % LYMPHOCYTES (test code = 1010) 22.2 % MONOCYTES (test code = 1011) 7.4 % EOSINOPHILS (test code = 1012) 4.8 % BASOPHILS (test code = 1013) 1.0 % IMMATURE GRANULOCYTES (test code = 1036) 0.4 % NUCLEATED RBCS (test code = 1065) 0.0 /100WBC'S PLATELET COUNT (test code = 1015) 332 K/UL ABSOLUTE NEUTROPHILS (test c ode = 1066) 4.39 K/UL ABSOLUTE LYMPHOCYTES (test c ode = 1067) 1.52 K/UL ABSOLUTE MONOCYTES (test cod e = 1068) 0.51 K/UL ABSOLUTE EOSINOPHILS (test c ode = 1040) 0.33 K/UL ABSOLUTE BASOPHILS (test cod e = 1069) 0.07 K/UL ABS IMMATURE GRANULOCYTES (t est code = 1020) 0.03 K/UL ABS NUCLEATED RBCS (test cod e = 14318) 0.00 K/UL Lalo Loredo DyllanCBC W/AUTO [id number] 00:00:00* Test Item Value Reference Range Interpretation Comme nts WBC (test code = 1001) 6.9 K/UL RBC (test code = 1002) 5.23 M/UL HEMOGLOBIN (test code = 1003) 14.7 G/DL HEMATOCRIT (test code = 1004) 45.2 % MCV (test code = 1005) 86.4 fL MCH (test code = 1006) 28.1 PG MCHC (test code = 1007) 32.5 G/DL RDW (test code = 1038) 12.4 % NEUTROPHILS (test code = 1008) 64.2 % LYMPHOCYTES (test code = 1010) 22.2 % MONOCYTES (test code = 1011) 7.4 % EOSINOPHILS (test code = 1012) 4.8 % BASOPHILS (test code = 1013) 1.0 % IMMATURE GRANULOCYTES (test code = 1036) 0.4 % NUCLEATED RBCS (test code = 1065) 0.0 /100WBC'S PLATELET COUNT (test code = 1015) 332 K/UL ABSOLUTE NEUTROPHILS (test c ode = 1066) 4.39 K/UL ABSOLUTE LYMPHOCYTES (test c ode = 1067) 1.52 K/UL ABSOLUTE MONOCYTES (test cod e = 1068) 0.51 K/UL ABSOLUTE EOSINOPHILS (test c ode = 1040) 0.33 K/UL ABSOLUTE BASOPHILS (test cod e = 1069) 0.07 K/UL ABS IMMATURE GRANULOCYTES (t est code = 1020) 0.03 K/UL ABS NUCLEATED RBCS (test cod e = 08175) 0.00 K/UL Lalo Loredo DyllanCT/NG, TMA, [id number] 00:00:00* Test Item Value Reference Range Interpretation Comme nts CHLAMYDIA, NAAT, URINE (test code = 01554) NEGATIVE GONORRHEA, NAAT, URINE (test code = 42696) NEGATIVE Lalo Loredo DyllanMICROSCOPIC URINALYSIS, REFLEX [id number] 00:00:00* Test Item Value Reference Range Interpretation Comme nts WHITE BLOOD CELLS (test code = 1513) 0-5 /HPF RED BLOOD CELLS (test code = 1514) 0-2 /HPF EPITHELIAL CELLS (test code = 45890) 0-5 /HPF BACTERIA (test code = 1515) NONE SEEN CASTS, HYALINE (test code = 1517) NONE SEEN Lalo MijaresCT/NG, TMA, [id number] 00:00:00* Test Item Value Reference Range Interpretation Comme nts CHLAMYDIA, NAAT, URINE (test code = 21959) NEGATIVE GONORRHEA, NAAT, URINE (test code = 68852) NEGATIVE Lalo MijaresMICROSCOPIC URINALYSIS, REFLEX [id number] 00:00:00* Test Item Value Reference Range Interpretation Comme nts WHITE BLOOD CELLS (test code = 1513) 0-5 /HPF RED BLOOD CELLS (test code = 1514) 0-2 /HPF EPITHELIAL CELLS (test code = 30914) 0-5 /HPF BACTERIA (test code = 1515) NONE SEEN CASTS, HYALINE (test code = 1517) NONE SEEN Lalo MijaresWhole blood cardiac troponin I measurement (mass/volume) 2020-05-12 23:34:00* Test Item Value Reference Range Interpretation Comme nts Bedside Troponin I (test cod e = 84613-0) 0.00 0.00-0.06 [facility] HealthAutomated blood leukocyte count (number/volume)2020-05-12 23:30:00* Test Item Value Reference Range Interpretation Comme nts White Blood Count (test code = 6690-2) 8.6 4.5-11.5 [facility] erythrocytes automated count (number/volume)2020-05-12 23:30:00* Test Item Value Reference Range Interpretation Comme nts Red Blood Count (test code = 789-8) 4.77 4.4-6.2 [facility] hemoglobin measurement (mass/volume)2020-05-12 23:30:00* Test Item Value Reference Range Interpretation Comme nts Hemoglobin (test code = 718-7) 14.0 13.0-17.5 [facility]ated blood hematocrit (volume fraction)2020-05-12 23:30:00* Test Item Value Reference Range Interpretation Comme nts Hematocrit (test code = 4544-3) 42.0 39.0-52.5 [facility] erythrocyte mean corpuscular volume (MCV) measurement 2020-05-12 23:30:00* Test Item Value Reference Range Interpretation Comme nts Mean Corpuscular Volume (connie t code = 787-2) 88 80-94 [facility] erythrocyte mean corpuscular hemoglobin (mass per erythrocyte)2020-05-12 23:30:00* Test Item Value Reference Range Interpretation Comme nts Mean Corpuscular Hemoglobin (test code = 785-6) 29.4 27.0-33.0 [facility] erythrocyte mean corpuscular hemoglobin concentration measurement (mass/volume)2020-05-12 23:30:00* Test Item Value Reference Range Interpretation Comme nts Mean Corpuscular Hemoglobin Concent (test code = 786-4) 33.3 33.0-37.0 [facility] erythrocyte distribution width [id number] 23:30:00 * Test Item Value Reference Range Interpretation Comme nts Red Cell Distribution Width (test code = 788-0) 12.3 10.7-14.5 [facility] blood platelet count (count/volume)2020-05-12 23:30:00 * Test Item Value Reference Range Interpretation Comme nts Platelet Count (test code = 777-3) 359 150-450 [facility] blood platelet mean volume [id number] 23:30:00* Test Item Value Reference Range Interpretation Comme nts Mean Platelet Volume (test c ode = 46773-3) 9.4 5.7-10.7 [facility] blood neutrophil count as percentage of total [id number] 23:30:00* Test Item Value Reference Range Interpretation Comme nts Neutrophils (%) (Auto) (test code = 770-8) 51 47-75 [facility] blood immature granulocyte count as percentage of total [id number] 23:30:00* Test Item Value Reference Range Interpretation Comme nts Immature Granulocyte % (Auto ) (test code = 16520-6) 1 0-0 [facility] lymphocyte count as percentage of total [id number] 23:30:00* Test Item Value Reference Range Interpretation Comme nts Lymphocytes (%) (Auto) (test code = 736-9) 32 25-44 [facility] monocyte count as percentage of total leukocytes 2020-05-12 23:30:00* Test Item Value Reference Range Interpretation Comme nts Monocytes (%) (Auto) (test c ode = 5905-5) 7 3-10 [facility] blood eosinophil count as percentage of total [id number] 23:30:00* Test Item Value Reference Range Interpretation Comme nts Eosinophils (%) (Auto) (test code = 713-8) 9 0-7 [facility] blood basophil count as percentage of total leukocytes 2020-05-12 23:30:00* Test Item Value Reference Range Interpretation Comme nts Basophils (%) (Auto) (test c ode = 706-2) 1 0-1 [facility] blood nucleated erythrocyte count as percentage of total [id number] 23:30:00* Test Item Value Reference Range Interpretation Comme nts Nucleated Red Blood Cells % (test code = 90810-2) 0.0 0-0.2 [facility] blood neutrophil count (number/volume)2020-05-12 23:30:00* Test Item Value Reference Range Interpretation Comme nts Neutrophils # (Auto) (test c ode = 751-8) 4.4 1.3-6.7 [facility] blood lymphocyte count (number/volume)2020-05-12 23:30:00* Test Item Value Reference Range Interpretation Comme nts Lymphocytes # (Auto) (test c ode = 731-0) 2.8 1.4-4.1 [facility]Blood monocytes automated count (number/volume)2020-05-12 23:30:00* Test Item Value Reference Range Interpretation Comme nts Monocytes # (Auto) (test code = 742-7) 0.6 0-1.3 [facility] blood eosinophil [id number] 23:30:00* Test Item Value Reference Range Interpretation Comme nts Eosinophils # (Auto) (test c ode = 711-2) 0.7 0-0.8 [facility] blood basophil count (number/volume)2020-05-12 23:30:00 * Test Item Value Reference Range Interpretation Comme nts Basophils # (Auto) (test code = 704-7) 0.1 0-0.1 [facility] blood nucleated erythrocyte count (count/volume) 2020-05-12 23:30:00* Test Item Value Reference Range Interpretation Comme nts Nucleated Red Blood Cells # (test code = 771-6) 0.00 0-0.01 [facility] comment [id number] 23:30:00* Test Item Value Reference Range Interpretation Comme nts Manual Differential (test co de = 8265-1) Not Ind [facility] or plasma sodium measurement (moles/volume)2020-05-12 23:30:00* Test Item Value Reference Range Interpretation Comme nts Sodium Level (test code = 2951-2) 139 136-145 [facility] plasma potassium measurement (moles/volume)2020-05-12 23:30:00* Test Item Value Reference Range Interpretation Comme nts Potassium Level (test code = 2823-3) 3.8 3.5-5.1 [facility] plasma chloride measurement (moles/volume)2020-05-12 23:30:00* Test Item Value Reference Range Interpretation Comme nts Chloride Level (test code = 2075-0) 103 98-107 [facility] or plasma total carbon dioxide measurement (moles/volume) 2020-05-12 23:30:00* Test Item Value Reference Range Interpretation Comme nts Carbon Dioxide Level (test c ode = 2027-9) 27 22-29 [facility] or plasma anion gap determination (moles/volume)2020-05-12 23:30:00* Test Item Value Reference Range Interpretation Comme nts Anion Gap (test code = 61883-7) 13 8-18 [facility] plasma urea nitrogen measurement (mass/volume)2020-05-12 23:30:00* Test Item Value Reference Range Interpretation Comme nts Blood Urea Nitrogen (test co de = 3094-0) 10 9-21 [facility] or plasma creatinine measurement (mass/volume)2020-05-12 23:30:00* Test Item Value Reference Range Interpretation Comme nts Creatinine (test code = 2160-0) 0.7 0.7-1.3 [facility]GFR estimate [id number] 23:30:00* Test Item Value Reference Range Interpretation Comme nts Estimat Glomerular Filtratio n Rate (test code = 723559272) 145 90-142 [facility] or plasma glucose measurement (mass/volume)2020-05-12 23:30:00* Test Item Value Reference Range Interpretation Comme nts Glucose Level (test code = 2345-7) 106 60-100 [facility] or plasma calcium measurement (mass/volume)2020-05-12 23:30:00* Test Item Value Reference Range Interpretation Comme nts Calcium Level (test code = 23279-3) 9.6 8.4-10.2 [facility] or plasma total bilirubin measurement (mass/volume) 2020-05-12 23:30:00* Test Item Value Reference Range Interpretation Comme nts Total Bilirubin (test code = 1975-2) 0.2 0.2-1.2 [facility] or plasma aspartate aminotransferase measurement (enzymatic activity/volume)2020-05-12 23:30:00* Test Item Value Reference Range Interpretation Comme nts Aspartate Amino Transf (AST/ SGOT) (test code = 1920-8) 16 5-34 [facility] or plasma alanine aminotransferase measurement (enzymatic activity/volume)2020-05-12 23:30:00* Test Item Value Reference Range Interpretation Comme nts Alanine Aminotransferase (AL T/SGPT) (test code = 1742-6) 16 0-55 [facility] or plasma protein measurement (mass/volume)2020-05-12 23:30:00* Test Item Value Reference Range Interpretation Comme nts Total Protein (test code = 2885-2) 7.7 6.4-8.3 [facility] or plasma albumin measurement (mass/volume)2020-05-12 23:30:00* Test Item Value Reference Range Interpretation Comme nts Albumin (test code = 1751-7) 4.5 3.5-5.0 [facility] plasma alkaline phosphatase measurement (enzymatic activity/volume)2020-05-12 23:30:00* Test Item Value Reference Range Interpretation Comme nts Alkaline Phosphatase (test c ode = 6768-6) 56 40-150 [facility] or plasma lipase measurement (enzymatic activity/volume) 2020-05-12 23:30:00* Test Item Value Reference Range Interpretation Comme [facility] Lipase (test code = 3040-3) 54 8-78 [facility]
[2024-05-31] MEDS ORDERED: LIDOCAINE 2% INJ, 20 mL 20 ML ONE (16:59)
--- NOTE | 2024-05-31 17:14 | ER ---
Nurse's Notes [facility] Name: Leonardo Redding Jr Age: 28 yrs Sex: Male : 1995 Arrival Date: 05/31/2024 Time: 15:31 Bed DX4 Private MD: Diagnosis: Cellulitis of right upper limb-wrist Presentation: 05/31 16:10 Chief complaint: Bit by unknown insect 3 days ago, c/o worsening redness, pain, and hb swelling to right hand. Coronavirus screen: At this time, the client does not indicate any symptoms associated with coronavirus-19. Ebola Screen: No symptoms or risks identified at this time. Initial Sepsis Screen: Does the patient meet any 2 criteria? No. Patient's initial sepsis screen is negative. Does the patient have a suspected source of infection? No. Patient's initial sepsis screen is negative. Risk Assessment: Do you want to hurt yourself or someone else? Patient reports no desire to harm self or others. Onset of symptoms was May 27, 2024. 16:10 Method Of Arrival: Ambulatory hb 16:10 Acuity: GIULIANO 4 hb Historical: - Allergies: 16:12 Ceclor; hb - Home Meds: 16:12 None [Active]; hb - PMHx: 16:12 Testicular Cancer; hb - Immunization history:: Adult Immunizations up to date. - Infectious Disease History:: Denies. - Social history:: Smoking status: Patient denies any tobacco usage or history of. Screenin:31 [facility] ED Fall Risk Assessment (Adult) History of falling in the last 3 months, kc6 including since admission No falls in past 3 months (0 pts) Confusion or Disorientation No (0 pts) Intoxicated or Sedated No (0 pts) Impaired Gait No (0 pts) Mobility Assist Device Used No (0 pt) Altered Elimination No (0 pt) Score/Fall Risk Level 0 - 2 = Low Risk Oriented to surroundings, Maintained a safe environment. Abuse screen: Denies threats or abuse. Denies injuries from another. Nutritional screening: No deficits noted. Tuberculosis screening: No symptoms or risk factors identified. Vital Signs: 16:10 BP 153 / 86; Pulse 89; Resp 20; Temp 98.8; Pulse Ox 98% on R/A; Weight 124.28 kg; hb Height 5 ft. 8 in. ; Pain 8/10; 16:10 Body Mass Index 41.66 (124.28 kg, 172.72 cm) hb 16:10 Pain Scale: Adult hb ED Course: 15:39 Patient arrived in ED. im 15:41 Babatunde Fan PA is PHCP. cp 15:41 Shin Joshua MD is Attending Physician. cp 16:12 Triage completed. hb 16:13 Arm band placed on. hb 17:31 No provider procedures requiring assistance completed. Patient did not have IV access kc6 during this emergency room visit. Administered Medications: 17:24 Drug: Lidocaine Infiltration (2 %) 5 mg Infiltration once Route: Infiltration; ss 17:30 Follow up: Response: No adverse reaction kc6 17:30 Drug: Doxycycline PO 200 mg PO once Route: PO; kc6 Medication: 17:31 VIS not applicable for this client. kc6 Outcome: 17:14 Discharge ordered by MD. cp 17:30 Discharged to home ambulatory, kc6 17:30 Condition: good 17:30 Discharge instructions given to patient, Instructed on discharge instructions, follow up and referral plans. medication usage, wound care, Demonstrated understanding of instructions, follow-up care, medications, wound care, Prescriptions given X 2, 17:31 Patient left the ED. kc6 Signatures: Roxann Montemayor RN RN Babatunde Fan PA PA cp Rina Gomez RN RN Melanie Landry RN RN kc6 Patria Vizcaino Corrections: (The following items were deleted from the chart) 16:15 16:10 Acuity: GIULIANO 3 hb hb
--- NOTE | 2024-05-31 17:15 | EDPHYS ---
Physician Documentation [facility] Name: Leonardo Redding Jr Age: 28 yrs Sex: Male : 1995 Arrival Date: 05/31/2024 Time: 15:31 Bed DX4 Private MD: ED Physician Shin Joshua HPI: 05/31 16:20 This 28 yrs old Male presents to ER via Ambulatory with complaints of Insect Bite. cp 16:20 The patient or guardian reports a bite, by an insect. cp 16:20 Context: patient reports concern for infected insect bite to radial side of right wrist cp that occurred 3 days ago. reports increased swelling and redness, drainage. Associated signs and symptoms: The patient has no apparent associated signs or symptoms. Historical: - Allergies: 16:12 Ceclor; hb - Home Meds: 16:12 None [Active]; hb - PMHx: 16:12 Testicular Cancer; hb - Immunization history:: Adult Immunizations up to date. - Infectious Disease History:: Denies. - Social history:: Smoking status: Patient denies any tobacco usage or history of. ROS: 16:25 Constitutional: HX per HPI cp Exam: 16:30 Constitutional: The patient appears in no acute distress, alert, awake, non-toxic, well cp developed, well nourished, 16:30 Head/Face: Normocephalic, atraumatic. cp 16:30 Chest/axilla: Inspection: normal, 16:30 Cardiovascular: Rate: normal, Rhythm: regular, 16:30 Respiratory: the patient does not display signs of respiratory distress, Respirations: normal, no use of accessory muscles, no retractions, labored breathing, is not present, 16:30 Musculoskeletal/extremity: Extremities: noted in the radial side of right wrist: erythema, swelling, tenderness, superficial blood filled bullae noted, ROM: full active range of motion, in the right wrist, Perfusion: the extremity is normally perfused throughout, the right hand and right wrist Sensation intact. Vital Signs: 16:10 BP 153 / 86; Pulse 89; Resp 20; Temp 98.8; Pulse Ox 98% on R/A; Weight 124.28 kg; hb Height 5 ft. 8 in. ; Pain 8/10; 16:10 Body Mass Index 41.66 (124.28 kg, 172.72 cm) hb 16:10 Pain Scale: Adult hb Procedures: 17:30 I \T\ D: Incision and drainage was performed for an abscess of the radial side of right cp wrist Prepped with Betadine, alcohol, Anesthetized with 3 ml's 2% Lidocaine. Drained small amount purulent fluid. bloody fluid. Dressing: sterile 4x4 gauze, the patient tolerated the procedure well, area pierced with 18 gauge needle. MDM: 16:17 Medical Screening Exam initiated 16:30 Differential diagnosis: abscess, cellulitis, septic joint. cp 17:13 Data reviewed: vital signs, nurses notes, and as a result, I will discharge patient. 17:13 I considered the following discharge prescriptions or medication management in the cp emergency department Medications were administered in the Emergency Department. See MAR. Counseling: I had a detailed discussion with the patient and/or guardian regarding the historical points, exam findings, and any diagnostic results supporting the discharge/admit diagnosis, to return to the emergency department if symptoms worsen or persist or if there are any questions or concerns that arise at home. Response to treatment: the patient's symptoms have mildly improved after treatment, and as a result, I will discharge patient. Administered Medications: 17:24 Drug: Lidocaine Infiltration (2 %) 5 mg Infiltration once Route: Infiltration; 17:30 Follow up: Response: No adverse reaction [facility] 17:30 Drug: Doxycycline PO 200 mg PO once Route: PO; kc6 Disposition Summary: 05/31/24 17:14 Discharge Ordered Notes: Location: Home cp Problem: new cp Symptoms: have improved cp Condition: Stable cp Diagnosis - Cellulitis of right upper limb - wrist cp Followup: cp - With: Private Physician - When: 2 - 3 days - Reason: Worsening of condition Discharge Instructions: - Discharge Summary Sheet cp - Cellulitis, Adult cp Forms: - Medication Reconciliation Form cp - Antibiotic Education cp - Prescription Opioid Use cp - Patient Portal Instructions cp - Leadership Thank You Letter cp Prescriptions: - Anaprox DS 550 mg Oral Tablet - take 1 tablet ORAL route every 12 hours As needed; 20 tablet; Refills: 0, cp Product Selection Permitted - Doxycycline Hyclate 100 mg Oral Tablet - take 1 tablet ORAL route every 12 hours; 20 tablet; Refills: 0, Product cp Selection Permitted Signatures: Roxann Montemayor RN RN ss Babatunde Fan PA PA cp Baxter, Heather, RN RN hb Melanie Landry, RN RN kc6
[2024-05-31] MEDS ORDERED: DOXYCYCLINE 100 MG CAP PO ONE (17:21)
[2024-05-31 22:00] VITALS: BP 153/86; TEMP 98.8; O2SAT 98
== END 2024-05-31 17:31 | disposition home or self-care (01) ==
LOC: ER 15:31
PROC: 0H9DXZZ Drainage of Right Lower Arm Skin, External Approach (ICD-10-PCS; principal; 2024-05-31)
DX: L03.113 Cellulitis of right upper limb (principal)
CPT/HCPCS: 99283